=== PATIENT | female | born 1995 | race Caucasian/White ===

== ENCOUNTER 2021-09-07 18:09 | Emergency (ER) | payer OTHER ==
[2021-09-07 19:05] LABS: CORONAVIRUS COVID-19 NAA NEGATIVE (NEGATIVE)
[2021-09-07] MEDS ORDERED: Prochlorperazine 5 MG Tab PO ONE (19:50)
[2021-09-07] MEDS ORDERED: diphenhydrAMINE 50 MG/ML SDV IVPUSH ONE (19:50)
[2021-09-07] MEDS ORDERED: Sodium Chloride 0.9% 10 ML Syringe FLUSH PRN (19:50)
[2021-09-07] MEDS ORDERED: Sodium Chloride 0.9% 1,000 ML IV ONE (19:50)
[2021-09-07] MEDS ORDERED: Ketorolac 30 MG/ML SDV IVPUSH ONE (19:50)
[2021-09-07 20:23] LABS: ANION GAP 13.1 mEq/L (7-13); CHLORIDE,CL 101 mmol/L (98-107); SODIUM,NA 136 mmol/L (136-145)
[2021-09-07] MEDS ORDERED: Amoxicillin 500 MG Cap PO ONE (21:07)
[2021-09-07] MEDS ORDERED: Baclofen 10 MG Tab PO ONE (21:07)
== END 2021-09-07 21:32 | disposition home or self-care (01) ==
LOC: DL.ED 18:09
DX: K52.9 Noninfective gastroenteritis and colitis, unspecified (principal); J01.90 Acute sinusitis, unspecified; Z88.1 Allergy status to other antibiotic agents; Z88.8 Allergy status to other drugs, medicaments and biological substances; Z20.822 Contact with and (suspected) exposure to COVID-19
CPT/HCPCS: 0240U; 36415; 80053; 83690; 85025; 85379; 96361; 96374; 96375; 99282; 99284-25; A9270-GY; J1200; J1885; J3490; J7030; Q0164